=== PATIENT | female | born 1995 | race Caucasian/White ===

== ENCOUNTER 2024-03-16 14:10 | Emergency (ER) | payer OTHER, SELFPAY ==
--- NOTE | ~2024-03-16 | XR_ITS ---
XR knee LT min 4V 03/16/2024 14:49 Indication: Left knee pain Procedure: 4 views left knee Comparison: No prior studies for comparison. Findings: No fracture, subluxation or dislocation. No significant joint effusion. No foreign bodies. Impression: 1: No acute bone or joint abnormality. Reviewed, dictated and finalized at location A. AND CUFF CUTTER Impression: 1: No acute bone or joint abnormality.
--- OUTSIDE RECORDS SUMMARY | 2024-03-16 14:13 | XMS_ITS | Clinical Summary ---
Author Organization [facility] Address [address] [place] [address] Care Team Providers Care Registered Nurse Teacher Name Role Phone Kalpesh Blank MD Unavailable [phone] Karla Topete NP Primary Care Provider [phone] Allergies No known active allergies Medications ergocalciferol, vitamin D2, (VITAMIN D2 ORAL) Take by mouth Active vit 12-tjhm-xatvu-dha 27mg iron- 800 mcg-250 mg capsule Take by mouth Active ondansetron ODT (ZOFRAN-ODT) 4 mg disintegrating tabletIndications:E xcessive Vomiting in Take 1 tablet (4 mg total) by mouth every 8 (eight) hours as needed for nausea or vomiting 20 tablet 1 4 Active sertraline (ZOLOFT) 50 mg tablet Take 1 tablet (50 mg total) by mouth daily 30 tablet 11 4 12/09/19 25 Active risperiDONE (RisperDAL) 0.5 mg tablet Take 1 tablet (0.5 mg total) by mouth 2 (two) times a day 60 tablet 6 4 Active metroNIDAZOLE (FLAGYL) 500 mg tablet Take 4 pills as a single dose, no alcohol, or 2 pills and repeat 2 pills in 12 hours. 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 Vitamin D deficiency 12/13/2023 Positive urine drug screen 12/13/2023 History of substance abuse ([facility]) 09/07/2022 Overview (09/07/2022): Meth x 1.5 years, last July,. Anxiety 06/15/2021 Assessment & Plan (06/15/2021 2:08 PM CDT): Rey, follows with Psychiatrist at [facility] Pt notes she is taking Sertraline and cannot recall the other medication. Will get records from [facility]. Moderate episode of recurrent major depressive d isorder 06/15/2021 Assessment & Plan (06/15/2021 2:08 PM CDT): Rey, follows with Psychiatrist at [facility] Pt notes she is taking Sertraline and cannot recall the other medication. Will get records from [facility]. Sterilization 08/07/2020 Overview (08/07/2020): Added automatically from request for surgery [id number] Assessment & Plan (09/07/2022 4:28 PM CDT): Desires sterilization. I have discussed permanency, alternative contraception, 1% failure rate or less, risks of injury and incidence of regret. Risks of bleeding, infection, anesthesia, risks of injury to surrounding structures discussed. Patient desires laparoscopic bilateral salpingectomy for possible cancer reduction benefit. Nature of procedure and recovery discussed. Patient wishes to proceed. Herpes simplex infection 02/22/2020 Overview (02/26/2020): Positive HSV 2 antibodies, no hx of outbreaks. History of gonorrhea 10/25/2019 Overview (10/25/2019): 09-13-19, Treated Estimated Date of Delivery Comme nts Yes 06/23/2024 Based on Ultraso und Resolved Problems Problem Noted Date Diagnosed Date Resolved Date Incomplete 03/02/2021 12/09/19 24 Overview (03/02/2021): Added automatically from request for surgery [id number] Breech presentation 12/24/2019 02/25/19 21 Overview (12/24/2019): At 27 weeks with resolution of low lying placenta. Placenta previa in second trimester 11/25/2019 12/24/2019 Overview (11/25/2019): Abutting internal os but lower uterine segment not fully developed on 20 week sono. Trichimoniasis 10/24/2019 02/04/2021 Overview (10/25/2019): 10-19-19, Treated Vaginal delivery 02/04/2021 39 weeks gestation of 02/04/2021 Encounters Date Type Department Care Team Description 03/16/2024 Telephone Radha Horn [address] [place] [address] [address] [place] [address] Nika Amador MA No Show (5th no show BREANNA ) 02/22/2024 3:00 PM REALTIME CAPTIONER Ancillary Procedure Radha Horn [address] [place] [address] [address] [place] [address] Encounter for anatomic survey 12/23/2023 Orders Only Radha Horn [address] [facility] [address] [place] [address] Provider, MD Kourtney from Last 3 Months Immunizations Name Administration Dates Next Due DTaP 11/13/2001, 0,04/29/1997,02/26,1996 HPV, Quadrivalent 03/31/2011,10/27/2010,08/22/19 11 Hep A, Pediatric 03/31/2011 Hep A, Unspecified 01/12/2005 Hep B, Adolescent or Pediatric 07/29/1997,1996,1996 HiB 02/24/1998, 8,02/26/1997,11/15 IPV 11/13/2001 Influenza, Quadrivalent, Spl it, Preservative Free, Intramuscular 02/11/2020 Influenza, Split 10/27/2010 Influenza, Unspecified 01/12/2005 MMR 11/13/2001,02/24/1998 Meningococcal MCV4P (Menactra) 08/21/2010 OPV 08/22/1999,02/26/1997,1996 Tdap 02/11/2020,08/21/2010 Varicella 03/31/2011,11/13/2001 Surgical History Surgery Date Site/Laterality Comments TONSILECTOMY, ADENOIDECTOMY, BILATERAL MYRINGOTOMY AND TUBES DILATION AND CURETTAGE OF UTERUS Medical History Medical History Date Comments Depression depression PONV (postoperative nausea and vomiting) Miscarriage Alcohol abuse 03/26/2016 Anxiety 2016 GERD (gastroesophageal reflux disease) Bipolar disorder (HCC) Family History Medical History Relation Name Comments Depression Brother 1 Breyden Shadia Mental illness Brother 1 Breyden Shadia Depression Brother 2 Cory Hassan Mental illness Brother 2 Cory Hassan Alcohol abuse Father Alexx Hassan Diabetes Maternal Grandmother Luven Depression Mother Peggy Hill Mental illness Mother Peggy Chengb Thyroid disease Mother Peggy Hill Asthma Sister 1 Lzu Ermelinda Depression Sister 1 Luz Ermelinda Mental illness Sister 1 Luz Ermelinda Miscarriages / Stillbirths Sister 1 Luz Karen ferty Depression Sister 2 Ann Zafar Mental illness Sister 2 Ann Zafar Relation Name Status Comments Brother 1 Breyden Shadia Brother 2 Cory Zafar Father Alexx Hassan Maternal Grandmother Lutobi Mother Peggy Alejandre Sister 1 Luz Wadsworth Sister 2 Ann Hassan Social History Tobacco Use Types Packs/Day Years Used Date Smoking Tobacco: Every Day Cigarettes Smokeless Tobacco: Never Tobacco Cessation:Ready to Q uit: Not Asked; Counseling Given: Not Answered Alcohol Use Standard Drinks/Week Comments Not Currently 0 (1 standard drink = 0.6 oz pur e alcohol) AUDIT-C Answer Date Recorded Frequency of Alcohol Consumption Not on file 12/03/2022 Q2: How many drinks containi ng alcohol do you have on a typical day when you are drinking? Patient does not drink Frequency of Binge Drinking Not on file 11/15 PHQ-2 Answer Date Recorded PHQ-2 Total Score (If total score is 3 or more points, staff should administer the PHQ-9) 0 06/15/2021 [place] Depression Scale Answer Date Recorded [place] Depression Scale Total 0 05/27/2020 The thought of harming myself has occurred to me . Never 05/27/2020 Estimated Date of Delivery Comme nts Yes 06/23/2024 Based on Ultraso und Sex and Gender Information Value Date Recorded Sex Assigned at Not on file Legal Sex Female 2:07 PM REALTIME CAPTIONER Gender Identity Female 07/23/2021 11:14 PM CDT Sexual Orientation Straight 11/02/2019 9: 40 AM CDT Obstetrics History Para Term AB IAB SAB Ectopic Multiple Livin g Live Births 6 3 3 2 1 1 0 3 3 Date Outcome GA Total Labor Labor/2nd/3rd Weight Sex Type Anes PTL Sasha A1 A5 Name Clin 2016 Term 3.062 kg (6 lb 12 oz) F Vag-S pont Epidur al N Livin g 2017 Term 3.175 kg (7 lb) F Vag-S pont Epidur al N Livin g 2020 Term 40w 4d 2h 09m 1h 51m/0h 11m/0h 07m 3.283 kg (7 lb 3.8 oz) M Vag-S pont Epidur al N Livin g 8 9 COLEM AN,UMA MCKENNA Blank , Kalpesh Cyr MD Delivery Location:This [facility] 2020 IAB TAB 2021 SAB 7w2 d Current Summary Episode Dates Number of Fetuses Estimated Date of Delivery 12/09/2023 - Present (03/16/2024) 06/23/2024 (set by Raudel Blank MD on 12/09/2023 based on Ultrasound on 11/21/2023) Dating Summary Based On MITZI GA Diff Last Menstrual Period on 11/21/2023 (Approximate ) 08/27/2024 -9w2d Ultrasound on 11/21/2023 06/23/2024 Working GA:9w2d Vitals Pregravid Weight Height TWG (As of 03/16/2024) Pregrav id BMI 157.5 cm (5' 2 ) Date GA Fund Present FHR Mvmt BP Weight Edema Alb Glu Ket Dil/ Eff/Sta 4 11w6d 126/60 54.4 kg (120 lb) 0/0/ Notes Progress Notes - Initial Pre mark - 12/09/2023 - GA:11w6d 12/09/2023 - 11w6d - Kalpesh Blank MD Initial OB Visit Subjective: Ernetso Hassan is a 28 y.o., at 11w6d, based on 1st trimester U/S, who presents for initial visit. Her obstetrical history is significant for x 3 . Past history fully reviewed. She reports nausea. Additional concerns today: She states no recent amphetamine use and only smokes marijuana. She is living with her boyfriend of 7 months at his mom's house. Her mother has custody of her 3 children /guardianship. Her mother moved to [place] but is planning on coming back to the area soon. She is off of her sertraline and Risperdal. She would like to resume. She smokes tob daily. Menstrual History: Patient's last menstrual period was 11/21/2023 (approximate). Sexual History: OB History 6 Para 3 Term 3 AB 2 Living 3 SAB 1 IAB 1 Ectopic Multiple 0 Live Births 3 # Outcome Date GA Labor/2nd Weight Sex Type Anes PTL Lv A1 A5 1 Term 05/10/16 3.062 kg (6 lb 12 oz) F Vag-Spont Epidural N Living 2 Term 06/23/17 3.175 kg (7 lb) F Vag-Spont Epidural N Living 3 Term 03/21/20 40w4d 1h 51m / 0h 11m 3.283 kg (7 lb 3.8 oz) M Vag-Spont Epidural N Living 8 9 Name: MERVAT HASSAN Location: This Facility Delivering Clinician: Kalpesh Blank MD 4 IAB 09/23/20 TAB 5 SAB 02/20/21 7w2d 6 Current Past Medical History: Diagnosis Date Alcohol abuse 03/26/2016 Anxiety 2016 Bipolar disorder (HCC) Depression GERD (gastroesophageal reflux disease) Miscarriage PONV (postoperative nausea and vomiting) depression Past Surgical History: Procedure Laterality Date DILATION AND CURETTAGE OF UTERUS TONSILECTOMY, ADENOIDECTOMY, BILATERAL MYRINGOTOMY AND TUBES No Known Allergies Prior to Admission medications Medication Sig Start Date End Date Taking? Authorizing Provider vit 11-brsj-toxwo-dha 27mg iron- 800 mcg-250 mg capsule Take by mouth Yes Kourtney Lr MD ergocalciferol, vitamin D2, (VITAMIN D2 ORAL) Take by mouth Patient not taking: Reported on 12/09/2023 Kourtney Lr MD ondansetron ODT (ZOFRAN-ODT) 4 mg disintegrating tablet Take 1 tablet (4 mg total) by mouth every 8 (eight) hours as needed for nausea or vomiting 12/09/23 Kalpesh Blank MD risperiDONE (RisperDAL) 0.5 mg tablet Take 1 tablet (0.5 mg total) by mouth 2 (two) times a day Patient not taking: Reported on 12/09/2023 11/19/22 Kourtney Lr MD sertraline (ZOLOFT) 50 mg tablet Take 1 tablet (50 mg total) by mouth daily 12/09/23 12/08/24 Kalpesh Blank MD medroxyPROGESTERone (DEPO-PROVERA) 150 mg/mL injection Inject 1 mL (150 mg total) into the muscle as instructed every 3 (three) months Patient not taking: Reported on 12/09/2023 01/19/23 12/09/23 Kalpesh Blank MD sertraline (ZOLOFT) 50 mg tablet Take 1 tablet (50 mg total) by mouth daily 09/07/22 12/09/23 Kalpesh Blank MD Family History Problem Relation Age of Onset Diabetes Maternal Grandmother Thyroid disease Mother Depression Mother Mental illness Mother Asthma Sister Depression Sister Mental illness Sister Miscarriages / Stillbirths Sister Alcohol abuse Father Depression Sister Mental illness Sister Depression Brother Mental illness Brother Depression Brother Mental illness Brother Social History Tobacco Use Smoking status: Every Day Current packs/day: 0.25 Types: Cigarettes Smokeless tobacco: Never Substance and Sexual Activity Drug use: Yes Frequency: 40.0 times per week Types: Marijuana Comment: daily Sexual activity: Yes Partners: Male control/protection: Injection Alcohol Use: Unknown (12/03/2022) AUDIT-C Frequency of Alcohol Consumption: Not on file Average Number of Drinks: Patient does not drink Frequency of Binge Drinking: Not on file ROS Objective: BP 126/60 (BP Location: Right arm, Patient Position: Sitting) Ht 157.5 cm (5' 2 ) Wt 120 lb (54.4 kg) LMP 11/21/2023 (Approximate) BMI 21.95 kg/m?? Physical OB Exam: Last filed by Kalpesh Blank MD on 12/09/2023 6:13 PM General Physical Exam HEENT: normal Heart: normal Skin: normal Thyroid: normal Lungs: normal Extremities: normal Lymph Nodes: normal Breasts: normal Neurological: normal Abdomen: normal Pelvic Exam Vulva: normal Vagina: discharge White frothy Cervix: normal Uterus: 12 weeks Adnexa: normal Spines: average Subpubic Arch: normal Pelvic Type: gynecoid See flow sheet for gestation -specific examination and vitals. See Episode Report for physical of record. Assessment: Patient is a 28 y.o., at 11w6d, size = dates. Diagnoses and all orders for this visit: Encounter for supervision of other normal in first trimester (Primary) - Drugs of Abuse Screen, Urine without Confirmation; Future - Urinalysis reflex to microscopic and culture Urine, clean voided; Future - Varicella Zoster IgG antibody Blood; Future - Hepatitis C antibody Blood; Future - Hepatitis B Surface Antigen Blood; Future - Type and screen; Future - Vitamin D 25 hydroxy; Future - RPR Blood; Future - HIV 1/2 Antibody plus p24 Antigen Blood; Future - CBC with auto differential; Future - Rubella IgG antibody Blood; Future - Pap and HPV, reflex to HPV Genotypes; Future - N. gonorrhoeae/C. trachomatis Amplification Thin prep-Endocervical; Future - SureSwab Advanced Vaginitis, TMA Endocervical/vaginal; Future 11 weeks gestation of Herpes simplex infection Comments: Hx HSV 2 ab positive. History of substance abuse (CMS/HCC) ([facility]) Moderate episode of recurrent major depressive disorder ([facility]) Comments: Restart meds: Sertraline and Respiradal. Trichomonal vaginitis Other orders - ondansetron ODT (ZOFRAN-ODT) 4 mg disintegrating tablet; Take 1 tablet (4 mg total) by mouth every 8 (eight) hours as needed for nausea or vomiting - sertraline (ZOLOFT) 50 mg tablet; Take 1 tablet (50 mg total) by mouth daily - risperiDONE (RisperDAL) 0.5 mg tablet; Take 1 tablet (0.5 mg total) by mouth 2 (two) times a day - metroNIDAZOLE (FLAGYL) 500 mg tablet; Take 4 pills as a single dose, no alcohol, or 2 pills and repeat 2 pills in 12 hours. Problem list reviewed and updated: LMP 8-24 Problems (from 12/09/23 to present) No problems associated with this episode. Plan: vitamin with DHA ordered Labs ordered Discussed genetic testing - patient declines Genetic counseling declined Carrier screening offered. I reviewed exercise, diet, medications, precautions. Also, see checklist. Follow up in 4 weeks. Kalpesh Blank MD 12/09/2023 Last Filed Vital Signs Vital Sign Reading Time Taken Comments Blood Pressure 126/60 12/09/2023 2:55 PM CDT Pulse 86 11/13/2023 10:33 PM CDT Temperature 36.8 ??C (98.3 ??F) 11/13/2023 10:33 PM C DT Respiratory Rate 16 11/13/2023 10:33 PM CDT Oxygen Saturation 99% 11/13/2023 10:33 PM CDT Inhaled Oxygen Concentration - - Weight 54.4 kg (120 lb) 12/09/2023 2:55 PM CDT Height 157.5 cm (5' 2 ) 12/09/2023 2:55 PM CDT Body Mass Index 21.95 12/09/2023 2:55 PM CDT Plan of Treatment Health Maintenance Due Date Last Done Comments Pneumococcal vaccine <65 (1 of 2 - PCV) 2002 Depression Screening 06/15/2022 06/15/2021, 05/28/19 21 Regular Well Visit/Exam 18-64 09/08/2023 09/07/2022 Influenza Vaccine (#1) 2023 , 10/27/2010, 01/12/2005 Cervical Cancer Screening 12/08/20242023, 09/07/2022, 09/13/2019 DTaP/Tdap/Td Vaccine (9 - Td or Tdap) 02/07/2033 02/07/2023, 02/11/2020, 08/21/2010, Additional history exists HPV Vaccines Completed 03/31/2011, 10/15, 08/21/2010 Varicella Vaccines Completed 03/31/2011, 11/13/2001 Hepatitis C Screening Completed 12/09/2023 , 11/15/2022, 12/18/2019 Procedures Procedure Name Priority Date/Time Associated Diagnosis Comments US OB 14 WEEKS OR OVER WITH US TRANSVAGINAL (C) Schedule Routine, Read Routine (OP Routine) 02/22/2024 3:57 PM REALTIME CAPTIONER Encounter for anatomic survey PAP AND HPV, REFLEX TO HPV GENOTYPES Routine 12/09/2023 3:38 PM CDT Encounter for supervision of other normal in first trimester HEPATITIS C ANTIBODY Routine 12/09/2023 3:02 PM CDT Encounter for supervision of other normal in first trimester from Last 3 Months or Most Recently Relevant to Health Maintenance Results * US OB 14 weeks or over with US Transvaginal (C) (02/22/2024 3:57 PM REALTIME CAPTIONER) Fetus# Fetus1 VIEWPOINT Estimated Weight 424 g&grams VIEWPOINT Placenta Details anterior, previa VIEWPOINT Presentation Vertex VIEWPOINT Anatomical Region Laterality Modality Abdomen N/A Ultrasound 02/22/2024 3:05 PM REALTIME CAPTIONER Impressions 03/07/2024 3:15 PM REALTIME CAPTIONER 1. ??21w 2d ??AGA by this ultrasound. ?? 2. ??No anatomic abnormalities are seen. ?? 3. ??TV Cervical length measures 38.5 mm which is normal. ?? 4. ??EFW is 15 oz which is in the 7%tile and represents early IUGR. ?? 5. ??UA dopplers are normal with positive end-diastolic flow and normal systolic to diastolic ratio averaging 4.2. ? 6. ??Anterior placenta previa with placenta just crossing the internal os. ?? Narrative Procedure Note Kalpesh Blank MD - 03/07/2024 IMPRESSION: 1. 21w 2d AGA by this ultrasound. 2. No anatomic abnormalities are seen. 3. TV Cervical length measures 38.5 mm which is normal. 4. EFW is 15 oz which is in the 7%tile and represents early IUGR. 5. UA dopplers are normal with positive end-diastolic flow and normalsystolic to diastolic ratio averaging 4.2. 6. Anterior placenta previa with placenta just crossing the internal os. us Kalpesh Blank MD IMG OB US PROCEDURES Final Result * Pap and HPV, reflex to HPV Genotypes (12/09/2023 3:38 PM CDT) CLINICAL INFORMATION: [facility] Comment:None given LMP [employer] [facility] Comment:A Previous Pap [facility] [employer] [facility] Comment:NONE GIVEN Prev. Bx [facility] [employer] [facility] Comment:NONE GIVEN SOURCE: [employer] [facility] Comment:Cervix, Endocervix Pap, specimen adequacy [facility] [employer] [facility] Comment: Satisfactory for evaluation. Endocervical/transformation zone component present. HPV interp [facility] [employer] [facility] Comment: Cytology Results: Negative for intraepithelial lesion or malignancy. Infection: [facility] [employer] [facility] Comment:Trichomonas vaginali s identified. COMMENTS [employer] [facility] Comment: This Pap test has been evaluated with computer assisted technology. Sign Builder Super[employer] [facility] Comment: PCM, CT(ASCP) CT Screening Location: [place] [address] [place] [address] Comment [facility] Comment: EXPLANATORY NOTE: The Pap is a screening test for cervical cancer. It is not a diagnostic test and is subject to false negative and false positive results. It is most reliable when a satisfactory sample, regularly obtained, is submitted with relevant clinical findings and history, and when the Pap result is evaluated along with historic and current clinical information. Human papillomavirus DNA, High Risk E6/E7 Not Detected NOT DETECTED [facility] Comment: Not Detected High Risk HPV types (16,18,31,33,35,39,45,51,52, 56,58,59,66,68) were not detected. Other HPV types which cause anogenital lesions may be present. The significance of the other types of HPV in malignant processes has not been established. Methodology: Real Time PCR ? Thin prep-Endocervica l 12/09/2023 3:38 PM CDT 12/12/2023 7:41 AM CDT us Kalpesh Blank MD LAB CYTOLOGY ORDERABLES Fi nal Result [facility] [address] [place] [address] [address] * Hepatitis C antibody Blood (12/09/2023 3:02 PM CDT) Hep C Ab Nonreactive Nonreactive Comment: Interpretive Data Nonreactive: Antibodies to HCV not detected. Does NOT exclude the possibility of recent exposure to HCV. Equivocal: Equivocal for HCV antibodies. Supplemental molecular testing will be automatically performed to determine infection status in accordance with current CDC screening recommendations. ?? Reactive: Positive for HCV antibodies. ??This may represent current or past HCV infection. Supplemental molecular testing will be automatically performed to determine ??current infection status in accordance with current CDC screening recommendations. Interpretive data was last revised on 2019. Testing performed by: [facility], [address] [place] [address], [place]., [address] Blood 12/09/2023 3:02 PM CDT 12/09/2023 9:18 PM CDT Kalpesh Blank MD LAB MICROBIOLOGY - GENERAL ORDERABLES Final Result [facility] [address] [facility] Department [place] [address] from Last 3 Months or Most Recently Relevant to Health Maintenance Insurance Advance Directives For more information, please contact: [phone] * Full Code (Latest Code Status on File) Date Activated Date Inactivated Comments 10/28/2020 4:13 PM 10/28/2020 10:55 PM * Full Code Date Activated Date Inactivated Comments 03/21/2020 8:44 AM 03/24/2020 4:42 AM Full CPR in ca se of cardiopulmonary arrest Care Teams Registered Nurse Teacher Relationship Specialty Start Date End Date Karla Topete NP [address] [facility] [address] [place] [address] PCP - General Family Medicine 06/15/21 Kalpesh Blank MD [address] [place] [address] [address] [place] [address] [employer] Obstetrics [facility] Gynecology 03/23/20
--- OUTSIDE RECORDS SUMMARY | 2024-03-16 14:13 | XMS_ITS | Encounter Summary ---
Author Organization [facility] Address [address] [place] [address] Care Team Providers Care Typewriter Assembler Name Role Phone Kalpesh Blank MD Unavailable [phone] Karla Topete NP Primary Care Provider [phone] Reason for Visit * Reason Onset Date Comments No Show 03/16/2024 5th no show BREANNA Encounter Details Date Type Department Care Team (Late st Contact Info) Description 03/16/2024 Telephone [facility] [employer] [address] [place] [address] [address], [place] [address] Nika Amador MA No Show (5th no show BREANNA ) Social History Tobacco Use Types Packs/Day Years Used Date Smoking Tobacco: Every Day Cigarettes Smokeless Tobacco: Never Alcohol Use Standard Drinks/Week Comments Not Currently [...] staff should administer the PHQ-9) 0 06/15/2021 [place] Depression Scale Answer Date Recorded [place] Depression Scale Total 0 05/27/2020 The thought of harming myself has occurred to me . Never 05/27/2020 Estimated Date of Delivery Comme nts Yes 06/23/2024 Based on Ultraso und Sex and Gender Information Value Date Recorded Sex Assigned at Not on file Legal Sex Female 2:07 PM MATERIALS MANAGER Gender Identity Female 07/23/2021 11:14 PM CDT Sexual Orientation Straight 11/02/2019 9: 40 AM CDT documented as of this encounter Miscellaneous Notes * Telephone Encounter - Nika Amador MA - 03/16/2024 10:01 AM MATERIALS MANAGER Called pt and Lm regarding 5th No show BREANNA appt. In a roll pt has not been seen since new OB. Stressed in VM the importance of appts. Etc. RIALS MANAGER documented in this encounter Plan of Treatment Not on file documented as of this encounter Visit Diagnoses Not on filedocumented in this encounter Care Teams Typewriter Assembler Relationship Specialty Start Date End Date Karla Topete NP [address] [facility] [address] [place] [address] PCP - General Family Medicine 06/15/21 Kalpesh Blank MD [address] [place] [address] [address] [place] [address] [employer] Obstetrics and Gynecology 03/23/20 documented as of this encounter
--- OUTSIDE RECORDS SUMMARY | 2024-03-16 14:13 | XMS_ITS | Referral Summary ---
Author Organization [facility] Address [address] [place] [address] Care Team Providers Care Oracle Database Manager Name Role Phone Kalpesh Blank MD Unavailable [phone] Karla Topete NP Primary Care Provider [phone] Encounters Date Type Department Care Team Description 03/16/2024 Telephone Radha Horn [address] [facility] [address] [place] [address] Nika Amador MA No Show (5th no show BREANNA ) 02/22/2024 3:00 PM STONE FABRICATOR Ancillary Procedure Radha Horn [address] [place] [address] [address] [place] [address] Encounter for anatomic survey 12/23/2023 Orders Only Musevadim MURPHY [address] [place] [address] Provider, MD Kourtney from Last 3 Months Allergies No known active allergies Medications ergocalciferol, vitamin D2, (VITAMIN D2 ORAL) Take by mouth Active vit [id number]-[id number] 27mg iron- 800 mcg-250 mg capsule Take [...] pills in 12 hours. 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 Vitamin D deficiency 12/13/2023 Positive urine drug screen 12/13/2023 History of substance abuse ([facility]) 09/07/2022 Overview (09/07/2022): Meth x 1.5 years, last July,. Anxiety 06/15/2021 Assessment & Plan (06/15/2021 2:08 PM CDT): Stable, follows with Psychiatrist at [facility] Pt notes she is taking Sertraline and cannot recall the other medication. Will get records from [facility]. Moderate episode of recurrent major depressive d isorder 06/15/2021 Assessment & Plan (06/15/2021 2:08 PM CDT): Rey, follows with Psychiatrist at [facility] Pt notes she is taking Sertraline and cannot recall the other medication. Will get records from [facility]. Sterilization 08/07/2020 Overview (08/07/2020): Added automatically from request for surgery [id number] Assessment & Plan (09/07/2022 4:28 PM CDT): [...] (03/02/2021): Added automatically from request for surgery [id number] Breech presentation 12/24/2019 02/25/19 Overview (12/24/2019): At 27 weeks with resolution of low lying placenta. Placenta previa in second trimester 11/25/2019 12/24/2019 Overview (11/25/2019): Abutting internal os but lower uterine segment not fully developed on 20 week sono. Trichimoniasis 10/24/2019 02/04/2021 Overview (10/25/2019): 9-4-20, Treated Vaginal delivery 02/04/2021 39 weeks gestation of 02/04/2021 Immunizations Name Administration Dates Next Due DTaP 11/13/2001, 0,04/29/1997,02/26,1996 HPV, Quadrivalent 03/31/2011,10/27/2010,08/22/19 11 Hep A, Pediatric 03/31/2011 Hep A, Unspecified 01/12/2005 Hep B, Adolescent or Pediatric 07/29/1997,1996,1996 HiB 02/24/1998, 8,02/26/1997,11/15 IPV 11/13/2001 Influenza, Quadrivalent, Spl it, Preservative Free, Intramuscular 02/11/2020 Influenza, Split 10/27/2010 Influenza, Unspecified 01/12/2005 MMR 11/13/2001,02/24/1998 Meningococcal MCV4P (Menactra) 08/21/2010 OPV 08/22/1999,02/26/1997,1996 Tdap 02/11/2020,08/21/2010 Varicella 03/31/2011,11/13/2001 Social History Tobacco Use Types Packs/Day Years [...] staff should administer the PHQ-9) 0 06/15/2021 [place] Depression Scale Answer Date Recorded [place] Depression Scale Total 0 05/27/2020 The thought of harming myself has occurred to me . Never 05/27/2020 Estimated Date of Delivery Comme nts Yes 06/23/2024 Based on Ultraso und Sex and Gender Information Value Date Recorded Sex Assigned at Not on file Legal Sex Female 2:07 PM STONE FABRICATOR Gender Identity Female 07/23/2021 11:14 PM CDT Sexual Orientation Straight 11/02/2019 9: 40 AM CDT Last Filed Vital Signs Vital Sign Reading [...] 12/09/2023 2:55 PM CDT Plan of Treatment Not on file Procedures Procedure Name Priority Date/Time Associated Diagnosis Comments US OB 14 WEEKS OR OVER WITH US TRANSVAGINAL (C) Schedule Routine, Read Routine (OP Routine) 02/22/2024 3:57 PM STONE FABRICATOR Encounter for anatomic survey PAP AND HPV, [...] with US Transvaginal (C) (02/22/2024 3:57 PM STONE FABRICATOR) Fetus# Fetus1 VIEWPOINT Estimated Weight 424 g&grams VIEWPOINT Placenta Details anterior, previa VIEWPOINT Presentation Vertex VIEWPOINT Anatomical Region Laterality Modality Abdomen N/A Ultrasound 02/22/2024 3:05 PM STONE FABRICATOR Impressions 03/07/2024 3:15 PM STONE FABRICATOR 1. ??21w 2d ??AGA by this ultrasound. [...] Genotypes (12/09/2023 3:38 PM CDT) CLINICAL INFORMATION: [facility] Comment:None given LMP [facility] Comment:A Previous Pap [facility] Comment:NONE GIVEN Prev. Bx [facility] Comment:NONE GIVEN SOURCE: [facility] Comment:Cervix, Endocervix Pap, specimen adequacy [facility] Comment: Satisfactory for evaluation. Endocervical/transformation zone component present. HPV interp [facility] Comment: Cytology Results: Negative for intraepithelial lesion or malignancy. Infection: [facility] Comment:Trichomonas vaginali s identified. COMMENTS [facility] Comment: This Pap test has been evaluated with computer assisted technology. Rn Burn [facility] Comment: PCM, CT(ASCP) CT Screening Location: [place] [address] [place], [place] [address] Comment [facility] Comment: EXPLANATORY NOTE: The Pap is a [...] High Risk E6/E7 Not Detected NOT DETECTED [facility] Comment: Not Detected High Risk HPV types (16,18,31,33,35,39,45,51,52, 56,58,59,66,68) were not detected. Other HPV types which cause anogenital lesions may be present. The significance of the other types of HPV in malignant processes has not been established. Methodology: Real Time PCR ? Thin prep-Endocervica l 12/09/2023 3:38 PM CDT 12/12/2023 7:41 AM CDT Kalpesh Blank MD LAB CYTOLOGY ORDERABLES Fi nal Result [facility] [address] [place] [address] [employer] [address] [address] * Hepatitis C antibody Blood (12/09/2023 3:02 [...] last revised on 2019. Testing performed by: [facility], [address] [place] [address], [place] [address] Blood 12/09/2023 3:02 PM CDT 12/09/2023 9:18 PM CDT Kalpesh Blank MD LAB MICROBIOLOGY - GENERAL ORDERABLES Final Result [facility]) [address] [facility] Department of [employer] [place] [id number] from Last 3 Months or Most Recently Relevant to Health Maintenance Insurance [facility] Advance Directives For more information, please contact: [phone] * Full Code (Latest Code Status on File) Date Activated Date Inactivated Comments 10/28/2020 4:13 PM 10/28/2020 10:55 PM * Full Code Date Activated Date Inactivated Comments 03/21/2020 8:44 AM 03/24/2020 4:42 AM Full CPR in ca se of cardiopulmonary arrest Care Teams Oracle Database Manager Relationship Specialty Start Date End Date Karla Topete NP [address] [facility] [address] [place] [address] PCP - General Family Medicine 06/15/21 Kalpesh Blank MD [address] [facility] [address] [place] [address] Elevator Builder Obstetrics and Gynecology 03/23/20
[2024-03-16 14:17] VITALS: BP 112/67; PULSE 99; RESP 18; TEMP 36.8; O2SAT 100
--- OUTSIDE RECORDS SUMMARY | 2024-03-16 14:19 | XMS_ITS | Clinical Summary ---
Author Organization [facility] Address [address] [place] [address] Phone Care Team Providers Care Cemetery Keeper Name Role Phone Provider, None Primary Care Provider Unavailabl e Allergies No known active allergies Medications No known medications Active Problems No known active problems Social History Tobacco Use Types Packs/Day Years Used Date Smoking Tobacco: Every Day Smokeless Tobacco: Never Comments No Sex and Gender Information Value Date Recorded Sex Assigned at Female 11/13/2023 11:26 PM CDT Legal Sex Female 9:51 AM CDT Gender Identity Female 11/13/2023 11:26 PM CDT Sexual Orientation Straight 11/13/2023 11 :26 PM CDT Last Filed Vital Signs Vital Sign Reading Time Taken Comments Blood Pressure 92/60 10/05/2020 10:41 AM CDT Pulse 97 10/05/2020 10:41 AM CDT Temperature 36.6 ??C (97.9 ??F) 10/05/2020 10:41 AM C DT Respiratory Rate 18 10/05/2020 10:41 AM CDT Oxygen Saturation 98% 10/05/2020 10:41 AM CDT Inhaled Oxygen Concentration - - Weight 77.1 kg (170 lb) 10/05/2020 10:41 AM CDT Height - - Body Mass Index - - Plan of Treatment Health Maintenance Due Date Last Done Comments Hepatitis C Virus (HCV) Screening 1996 Pap Smear 2017 Influenza Immunization (#1) 2023 02/11/2020, 1 03/14/2004 SARS-COV-2 Immunization ( season) 2023 Respiratory Syncytial Virus (RSV) Immunization (Adult) (1 - 1-dose 75+ series) 09/24/2071 Hepatitis B Immunization Completed 998, 1996, 1996 Meningococcal Immunization (ACWY) Aged Out 08/21/2010 No longer eligible based on patient's age to complete this topic Human Papillomavirus (HPV) Immunization Discontinued 03/31/2011, 10/27/2010, 08/21/2010 DTaP/Tdap/Td Immunization Discontinued 2019, 08/21/2010, 11/13/2001, Additional history exists TdaP Immunization Completed 02/11/2020, 08/21/2010 Pneumococcal Immunization Combined Aged Out No longer eligible based on patient's age to complete this topic Rotavirus Immunization Aged Out No lo nger eligible based on patient's age to complete this topic Insurance MEDICAID [employer] Care Teams Cemetery Keeper Relationship Specialty Start Date End Date Provider, None [place] PCP - General 10/05/20
--- NOTE | 2024-03-16 14:36 | ED_ITS ---
HPI - Extremity Injury (Lower) General Chief Complaint: Extremity Injury, Lower Stated Complaint: left knee injury History of Present Illness HPI Narrative: Patient is a 28-year-old female, , she is uncertain exactly how far along she is, estimating approximately 5 months gestation presents to [facility] with left knee pain, onset of symptoms 5 days ago when she was pulled down by her dog, landing on her knees bilaterally. She has had significant bruising to the peripatellar region of the left knee, minimally with weight-bearing however when she is seated she feels occasional numbness in the skin surface of the left knee and reports pain shoots down the left anterior mchugh. She denies hitting her head or LOC, she did not injure her abdomen, she denies abdominal pain and reports good movement. She has not treated her symptoms thus far. She denies any additional associated symptoms or modifying factors. Related Data Home Medications ?Medication ?Instructions ?Recorded ?Confirmed ?Last Taken ?Type cholecalciferol (vitamin D3) 50 03/16/24 Unknown History mcg (2,000 unit) tablet (Vitamin D3) vitamins no.119-iron tablet PO 03/16/24 Unknown History fumarate 29 mg-folic acid 1 mg tablet (Se--19) risperidone 0.5 mg tablet mg 03/16/24 Unknown History sertraline 50 mg tablet mg 03/16/24 Unknown History Allergies Allergy/AdvReac Type Severity Reaction Status Date / Time No Known Allergies Allergy Verified 03/16/24 14:26 Review of Systems Musculoskeletal: Comments: Refer HPI Exam Const: General: healthy appearing and no acute distress Nutritional Appearance: well nourished Orientation/consciousness: patient oriented x3 Limitations: no limitations Other: patient appears older than stated age, she smells heavily of cigarette smoke HENMT: Head: normal to inspection Ears: external ears normal and TM's normal bilaterally Face/Nose/Sinus: Normal external nose present and Normal nares present Face and sinus: normal facial exam Mouth: Yes Normal oral and palatal mucosa present Teeth and gingiva: dentition normal Throat: posterior oropharynx normal and uvula midline Eyes: Conjunctivae: conjunctivae normal Pupils: Equal, round and reactive pupils present EOM: EOMs intact bilaterally Direct Ophthalmoscopy: no photophobia Neck: Neck: normal visual inspection Chest: Chest palpation & inspection: normal inspection of the chest Resp: Effort & Inspection: normal respiratory effort Auscultation: clear to auscultation bilaterally Cardio: Rate: regular rate Rhythm: regular rhythm GI: GI Palp: Yes Soft to palpation Other: gravid uterus, no tenderness to palpation Back/Spine/Pelvis: Back: no CVA tenderness Skin: Rashes: no rashes Wounds: no wounds Other: patient has dark purple ecchymosis over the anterior patellar region / peripatellar area of the left knee. There is no crepitus or deformity. No gross swelling. Calves are not tender bilaterally without palpable cord in the ER symmetrical. The left knee is tender to palpation over the patella only. No laxity noted. The right patella has a slight area of ecchymosis however there is no gross swelling or significant tenderness to palpation present. Distal PMS intact Neuro: General: patient oriented x3, moves all extremities, no meningeal signs, no focal motor deficits and CN's II-XI intact bilaterally Cranial nerves: Yes Nystagmus not present Speech: normal speech Gait exam (Neuro): Normal gait present Extrem: Other: refer to skin examination no C-spine point tenderness, no step-offs, no T or L-spine point tenderness, no step-offs Course Course Emergency Course: imaging is unremarkable for acute findings. Suspect contusion is causing some paresthesia when the knee is flexed. No evidence or signs of DVT the patient is high risk given current state and tobacco dependence. She is encouraged to follow-up closely with her PCP if symptoms are not improving as the bruising fades. She may wrap the area gently, elevate the extremity and apply a heating pad on low to help reabsorption of the area of ecchymosis as the injury is 5-day-old. Patient may take Tylenol as directed [id number] for discomfort. Patient is agreeable plan and verbalized understanding of instructions provided Level of Care: Express Care Visit ([id number]) Vital Signs Vital signs: Vital Signs Temperature 36.8 C 03/16/24 14:17 Pulse Rate 99 03/16/24 14:17 Respiratory Rate 18 03/16/24 14:17 Blood Pressure 112/67 03/16/24 14:17 Pulse Oximetry 100 03/16/24 14:17 Oxygen Delivery Room Air 03/16/24 14:17 Temperature 36.8 C 03/16/24 14:17 Pulse Rate 99 03/16/24 14:17 Respiratory Rate 18 03/16/24 14:17 Blood Pressure 112/67 03/16/24 14:17 Pulse Oximetry 100 03/16/24 14:17 Oxygen Delivery Room Air 03/16/24 14:17 MDM - Extremity Injury (Lower) MDM Narrative Medical decision making narrative: Tylenol, Jose Carlos, PCP follow-up in 5-7 days Differential Diagnosis Differential diagnosis: Likely other ( fracture, contusion, sprain, strain) Discharge Plan Discharge Clinical Impression: Contusion of knee, left Qualifiers: Encounter type: initial encounter Qualified Code(s): S80.02XA - Contusion of left knee, initial encounter Patient Disposition: Home, Self-Care Condition: Stable Instructions: Antibiotic Form, Knee Pain (ED) Additional Instructions: YOU MAY TAKE TYLENOL DIRECTED [id number] FOR DISCOMFORT. WRAPPED THE KNEE GENTLY FOR COMPRESSION, YOU MAY APPLY A HEATING PAD ON LOW TO HELP THE BRUISE REABSORBED. SEE YOUR PRIMARY DOCTOR FOR FOLLOW-UP IF YOUR SYMPTOMS ARE NOT RESOLVING YOUR BRUISING FADES. Patient Language: Croatian Prescriptions: No Action sertraline 50 mg tablet risperidone 0.5 mg tablet cholecalciferol (vitamin D3) [Vitamin D3] 50 mcg (2,000 unit) tablet Se--19 29 mg iron- 1 mg tablet PO Follow-up/Referrals: PHYSICIAN,LATHE SETUP OPERATOR [Primary Care Provider] - Time of Disposition: 15:02
== END 2024-03-16 15:10 | disposition home or self-care (01) ==
PROVIDERS: Emergency Provider Nurse Practitioner Family
DX: O9A.219 Injury, poisoning and certain other consequences of external causes complicating pregnancy, unspecified trimester (principal); S80.02XA Contusion of left knee, initial encounter; Z3A.00 Weeks of gestation of pregnancy not specified; W01.0XXA Fall on same level from slipping, tripping and stumbling without subsequent striking against object, initial encounter
CPT/HCPCS: 73564; 99203; G0463